=== PATIENT | female | born 1990 | race Caucasian/White ===

== ENCOUNTER 2020-08-05 19:59 | Emergency (ER) | payer OTHER ==
[~2020-08-05 19:59] MED LIST: CLARITIN10 M2 PO; DOK100 MG PO; IBUPROFEN600 MG PO; OMEPRAZOLE20 MG PO; PRENATAL VITAM1 EAC8 PO; TYLENOL 325MG325 MG PO; ZANTAC150 MG PO
[2020-08-05 22:09] LABS: HEMOGLOBIN 12.8 gm/dl (12.3-15.3); RED BLOOD COUNT 4.22 M/UL (4.00-5.10); WHITE BLOOD COUNT 9.1 K/UL (4.5-11.0)
[2020-08-05 22:33] LABS: BUN/CREATININE RATIO 29 (0-10)
[2020-08-05] MEDS ORDERED: IBUPROFEN800 MG PO (23:10)
[2020-08-05] MEDS ORDERED: CYCLOBENZAPRINE10 MG PO (23:10)
== END 2020-08-05 23:27 | disposition home or self-care (01) ==
LOC: ER1 19:59
PROVIDERS: Family Medicine
DX: R07.9 Chest pain, unspecified (principal)
CPT/HCPCS: 36415; 71045; 80053; 82550; 82553; 83874; 84484; 85025; 93005; 96372; 99285; J1100

== ENCOUNTER → 2020-08-28 | Outpatient (CLI) | payer OTHER ==
[~2020-08-28] MED LIST changes: +CYCLOBENZAPRINE10 MG PO; +IBUPROFEN800 MG PO
== END ==
LOC: EXRD 08-27 08:45
DX: R10.11 Right upper quadrant pain (principal)
CPT/HCPCS: 76705

== ENCOUNTER → 2020-10-11 | Outpatient (CLI) | payer OTHER | LOC: NM 12:37 | DX: R10.11 Right upper quadrant pain (principal) | CPT/HCPCS: 78227; A9537; J2805 ==